=== PATIENT | female | born 2005 | race Caucasian/White ===

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

== ENCOUNTER → 2023-02-17 | Outpatient (CLI) | payer BC, SELFPAY ==
[2023-02-17 15:35] LABS: Absolute Neutrophil Count 3.5 X10^3/uL (2.0-7.7); Basophil# 0.04 X10^3/uL; Basophil% 0.7 % (0-1); Eosinophil# 0.15 X10^3/uL; Eosinophils% 2.5 % (0-5); Hematocrit 46.5 % (37-47); Hemoglobin 15.2 g/dL (12.0-15.0); Lymphocyte % 32.9 % (19-41); Mean Corp Hgb Conc 32.7 g/dL (32-36); Mean Corpuscular Hgb 29.5 pg (27.0-32.0); Mean Corpuscular Volume 90.1 fL (81-99); Mean Platelet Vol. 12.2 fl (6.2-12.0); Monocyte# 0.41 X10^3/uL; Monocyte% 6.7 % (0-10); NRBC Flagged by Analyzer 0 % (0-5); Neutrophil # 3.46 X10^3/uL (2.7-7.7); Neutrophil % 56.9 % (47-70); Platelet Count 178 K/mm3 (150-450); RBC Distribution Width CV 12.6 % (11.6-14.6); RBC Distribution Width SD 42.2 fl (35.1-43.9); Red Blood Count 5.16 M/mm3 (4.2-5.4); White Blood Count 6.1 K/mm3 (4.4-11.0)
[2023-02-17 16:07] LABS: Hemoglobin A1c 5.2 % (3.8-5.6)
[2023-02-17 16:18] LABS: ALB/GLOB Ratio 1.2 RATIO (0.9-2.4); AST(SGOT) 9 U/L (15-37); Alanine Aminotransfer ALT/SGPT 25 U/L (13-56); Albumin, Serum 4.3 g/dL (3.2-5.0); Alkaline Phosphatase 46 U/L (45-117); Anion Gap 6 (5-15); BUN 18 mg/dL (7-18); BUN/Creat Ratio 16.7 RATIO (10-20); Calcium,Total 9.6 mg/dL (8.5-10.1); Chloride 105 mmol/L (98-107); Creatinine, Serum 1.08 mg/dL (0.55-1.02); EST Glomerular Filtration Rate 69 mL/min (>60); Est Glom Filt Rate - Afr Amer 83 mL/min (>60); Free T3 2.6 pg/mL (2.18-3.98); Globulin 3.5 g/dL (2.2-4.2); Glucose 87 mg/dL (74-106); Potassium 3.7 mmol/L (3.5-5.1); Protein, Total 7.8 g/dL (6.4-8.2); Sodium Level 140 mmol/L (136-145); T4 Free Direct 1.06 ng/dL (0.76-1.46); T4 Total, Thyroxin 9.5 ug/dL (4.8-13.9); Thyroid Stim Hormone (TSH) 0.78 uIU/mL (0.358-3.74)
[2023-02-17 17:24] LABS: Insulin 30.4 mU/L (2.6-37.6); T3 Total - Triiodothyronine 0.92 ng/mL (0.6-1.81); Vitamin B12 391 pg/mL (211-911); Vitamin D,25 Hydroxy 30.7 ng/mL
[2023-02-22 12:07] LABS: T3 Reverse 17.1 ng/dL (9.2-24.1); Thyroglobulin Antibody 7.3 IU/mL (0.0-0.9); Thyroid Peroxidase AB 250 IU/mL (0-26)
== END | disposition home or self-care (01) ==
PROVIDERS: PCP Pediatrics
DX: R53.82 Chronic fatigue, unspecified (principal); K58.0 Irritable bowel syndrome with diarrhea; E07.9 Disorder of thyroid, unspecified; E88.81 Metabolic syndrome and other insulin resistance; F41.8 Other specified anxiety disorders
CPT/HCPCS: 36415; 80053; 82306; 82607; 82746; 83036; 83525; 84436; 84439; 84443; 84480; 84481; 84482; 85025; 86376; 86800

== ENCOUNTER → 2023-03-04 | Outpatient (CLI) | payer BC, SELFPAY ==
[2023-03-04 14:03] LABS: Bacteria 0 SEEN /hpf (None Seen); Mucous, Urine 0 SEEN /hpf (<or=2+); Red Blood Cells-Urine 0 SEEN /hpf (0-5)
[2023-03-04 15:11] LABS: Glucose, Dipstick Normal (Normal); Ketone-Dipstick Negative (Negative); Leukocyte Esterase-Dipstick Negative /ul (Negative); Nitrite-Dipstick Negative (Negative); Occult Blood-Urine 150 /ul (Negative); Protein-Dipstick Negative (Negative); Specific Gravity, Urine 1.015 (1.002-1.030); Urine Bilirubin Dipstick Negative (Negative); Urine Urobilinogen Normal (Normal)
[2023-03-04 15:16] LABS: Color, Urine Yellow (Yellow)
[2023-03-04 15:30] LABS: Urine Clarity Clear (Clear)
[2023-03-04 15:34] LABS: Squamous Epithelial Cells - UA 0-5 SEEN /hpf (5-10); White Blood Cells 0-5 SEEN /hpf (0-5)
== END | disposition home or self-care (01) ==
PROVIDERS: PCP Pediatrics
DX: R94.4 Abnormal results of kidney function studies (principal)
CPT/HCPCS: 81001

== ENCOUNTER → 2023-06-09 | Outpatient (CLI) | payer BC, SELFPAY ==
--- NOTE | 2023-06-09 14:33 | US_ITS ---
STUDY: THYROID ULTRASOUND REASON FOR EXAM: Female, 18 years old. Known nodule TECHNIQUE: Ultrasound evaluation of the thyroid was performed with real-time and static joshi-scale imaging. COMPARISON: 06/14/2021 FINDINGS: RIGHT LOBE: The right lobe of the thyroid gland measures 5.4 x 2.1 x 1.6 cm. There is a heterogeneous echotexture. There are no demonstrated solid, cystic or complex lesions. LEFT LOBE: The left lobe of the thyroid gland measures 5.5 x 2.0 x 1.6 cm. There is a heterogeneous echotexture. There is a stable lower pole cyst measuring 1.0 cm. This nodule is cystic or nearly completely cystic. TI-RADS points: 0. TI-RADS category: TR1. This nodule is benign and no FNA or follow-up is necessary. ISTHMUS: The isthmus measures 0.5 cm. Well-defined hypoechoic 1.1 cm isthmus nodule. This nodule is solid or almost completely solid, hypoechoic, [id number], smoothly marginated and contains no echogenic foci. TI-RADS points: 4. TI-RADS category: TR4. This nodule is moderately suspicious. Recommend follow-up thyroid ultrasounds at 1, 2, 3 and 5 years. The regional lymph nodes are normal. All measure less than 1 cm in short axis dimension US/Thyroid IMPRESSION: Borderline enlarged heterogeneous thyroid gland with a simple cyst in the left lobe which needs no specific follow-up and a new 1.1 cm hypoechoic isthmus nodule. Follow-up and categorization as described above Electronically Signed: Silvino Moffett MD at 20:09 EST ,
== END | disposition home or self-care (01) ==
LOC: US 14:32
PROVIDERS: PCP Pediatrics; Referring Provider Internal Medicine Endocrinology, Diabetes & Metabolism; Visit Provider Internal Medicine Endocrinology, Diabetes & Metabolism
DX: E04.9 Nontoxic goiter, unspecified (principal)
CPT/HCPCS: 76536

== ENCOUNTER → 2023-08-24 | Outpatient (CLI) | payer BC, SELFPAY ==
[2023-08-24 17:42] LABS: Absolute Lymphocyte Count 1.35 X10^3/uL (0.83-4.51); Absolute Neutrophil Count 3.9 X10^3/uL (2.0-7.7); Basophil# 0.03 X10^3/uL; Basophil% 0.5 % (0-1); Eosinophil# 0.15 X10^3/uL; Eosinophils% 2.6 % (0-5); Hematocrit 42.5 % (37-47); Hemoglobin 13.8 g/dL (12.0-15.0); Lymphocyte # 1.35 X10^3/ul (0.83-4.51); Lymphocyte % 23.3 % (19-41); Mean Corp Hgb Conc 32.5 g/dL (32-36); Mean Corpuscular Hgb 29.4 pg (27.0-32.0); Mean Corpuscular Volume 90.4 fL (81-99); Monocyte# 0.38 X10^3/uL; Monocyte% 6.6 % (0-10); NRBC Flagged by Analyzer 0 % (0-5); Neutrophil # 3.88 X10^3/uL (2.7-7.7); Neutrophil % 66.8 % (47-70); Platelet Count 172 K/mm3 (150-450); RBC Distribution Width CV 13.3 % (11.6-14.6); RBC Distribution Width SD 44.9 fl (35.1-43.9); White Blood Count 5.8 K/mm3 (4.4-11.0)
[2023-08-24 17:55] LABS: Hemoglobin A1c 5.1 % (3.8-5.6)
[2023-08-24 17:56] LABS: Insulin 16.3 mU/L (2.6-37.6); T3 Total - Triiodothyronine 0.85 ng/mL (0.6-1.81); Vitamin B12 422 pg/mL (211-911); Vitamin D,25 Hydroxy 33.3 ng/mL
[2023-08-24 18:09] LABS: ALB/GLOB Ratio 1.3 RATIO (0.9-2.4); AST(SGOT) 16 U/L (15-37); Alanine Aminotransfer ALT/SGPT 28 U/L (13-56); Albumin, Serum 4.2 g/dL (3.2-5.0); Alkaline Phosphatase 44 U/L (45-117); Anion Gap 7 (5-15); BUN 17 mg/dL (7-18); Calcium,Total 8.9 mg/dL (8.5-10.1); Chloride 106 mmol/L (98-107); Creatinine, Serum 1.13 mg/dL (0.55-1.02); EST Glomerular Filtration Rate 65 mL/min (>60); Est Glom Filt Rate - Afr Amer 79 mL/min (>60); Globulin 3.3 g/dL (2.2-4.2); Glucose 64 mg/dL (74-106); Potassium 3.6 mmol/L (3.5-5.1); Protein, Total 7.5 g/dL (6.4-8.2); Sodium Level 139 mmol/L (136-145); T4 Free Direct 0.92 ng/dL (0.76-1.46); T4 Total, Thyroxin 7.7 ug/dL (4.8-13.9); Thyroid Stim Hormone (TSH) 0.62 uIU/mL (0.358-3.74)
[2023-08-26 10:09] LABS: Anti-Nuclear Antibody Test Negative (.)
[2023-09-07 04:07] LABS: Thyroglobulin Antibody 1.5 IU/mL (0.0-0.9); Thyroid Peroxidase AB 152 IU/mL (0-34)
== END | disposition home or self-care (01) ==
PROVIDERS: PCP Pediatrics
DX: E56.9 Vitamin deficiency, unspecified (principal); K90.9 Intestinal malabsorption, unspecified; F41.8 Other specified anxiety disorders; R53.82 Chronic fatigue, unspecified; E07.9 Disorder of thyroid, unspecified
CPT/HCPCS: 36415; 80053; 82306; 82607; 82746; 83036; 83525; 84432; 84436; 84439; 84443; 84480; 84481; 85025; 86038; 86376; 86800

== ENCOUNTER → 2024-01-15 | Outpatient (CLI) | payer BC, SELFPAY ==
[2024-01-15 15:22] LABS: Absolute Lymphocyte Count 1.35 X10^3/uL (0.83-4.51); Absolute Neutrophil Count 4.6 X10^3/uL (2.0-7.7); Basophil# 0.02 X10^3/uL; Basophil% 0.3 % (0-1); Hematocrit 45.3 % (37-47); Hemoglobin 14.6 g/dL (12.0-15.0); Lymphocyte # 1.35 X10^3/ul (0.83-4.51); Lymphocyte % 20.3 % (19-41); Mean Corp Hgb Conc 32.2 g/dL (32-36); Mean Corpuscular Volume 90.1 fL (81-99); Monocyte# 0.46 X10^3/uL; Monocyte% 6.9 % (0-10); NRBC Flagged by Analyzer 0 % (0-5); Neutrophil # 4.61 X10^3/uL (2.7-7.7); Neutrophil % 69.3 % (47-70); Platelet Count 186 K/mm3 (150-450); RBC Distribution Width CV 12.7 % (11.6-14.6); Red Blood Count 5.03 M/mm3 (4.2-5.4); White Blood Count 6.7 K/mm3 (4.4-11.0)
[2024-01-15 15:53] LABS: ALB/GLOB Ratio 1.2 RATIO (0.9-2.4); AST(SGOT) 14 U/L (15-37); Alanine Aminotransfer ALT/SGPT 23 U/L (13-56); Albumin, Serum 4.3 g/dL (3.2-5.0); Alkaline Phosphatase 49 U/L (45-117); Anion Gap 9 (5-15); BUN 22 mg/dL (7-18); BUN/Creat Ratio 19.8 RATIO (10-20); Calcium,Total 9.3 mg/dL (8.5-10.1); Chloride 104 mmol/L (98-107); Creatinine, Serum 1.11 mg/dL (0.55-1.02); EST Glomerular Filtration Rate 66 mL/min (>60); Est Glom Filt Rate - Afr Amer 80 mL/min (>60); Free T3 2.2 pg/mL (2.18-3.98); Globulin 3.7 g/dL (2.2-4.2); Glucose 61 mg/dL (74-106); Potassium 3.8 mmol/L (3.5-5.1); Sodium Level 139 mmol/L (136-145); T4 Free Direct 0.99 ng/dL (0.76-1.46); T4 Total, Thyroxin 8.9 ug/dL (4.8-13.9); Thyroid Stim Hormone (TSH) 0.709 uIU/mL (0.358-3.740)
[2024-01-15 19:58] LABS: T3 Total - Triiodothyronine 0.85 ng/mL (0.6-1.81); Vitamin B12 363 pg/mL (211-911); Vitamin D,25 Hydroxy 45.1 ng/mL
[2024-01-18 15:07] LABS: ANTINUCLEAR ANTIBODIES DIRECT Negative (Negative)
[2024-01-25 04:07] LABS: Anti-Thyroglobulin AB 1.4 IU/mL (0.0-0.9); Insulin Level 28.9 uIU/mL (2.6-24.9); Thyroglobulin RIA 22 ng/mL (.); Thyroid Peroxidase AB 197 IU/mL (0-34)
== END | disposition home or self-care (01) ==
LOC: MTLAB 11:37
PROVIDERS: PCP Pediatrics
DX: E07.9 Disorder of thyroid, unspecified (principal); R53.82 Chronic fatigue, unspecified; F41.8 Other specified anxiety disorders; K90.9 Intestinal malabsorption, unspecified; E56.9 Vitamin deficiency, unspecified
CPT/HCPCS: 36415; 80053; 82306; 82607; 82746; 83036; 83525; 84432; 84436; 84439; 84443; 84480; 84481; 85025; 86038; 86225; 86235; 86376; 86800

== ENCOUNTER 2024-02-13 20:04 | Emergency (ER) | payer BC, SELFPAY ==
[2024-02-13 20:06] VITALS: BP 118/84; PULSE 107; RESP 16; TEMP 36.7; O2SAT 98; BMI 21.8
[2024-02-13] MEDS: 0.9% Normal Saline (1000mL) 1,000 ML 999 ML IV (20:36)
[2024-02-13] MEDS: Ondansetron 4 MG/2 ML Vial IV (20:36)
--- NOTE | 2024-02-13 20:42 | RAD_ITS ---
INDICATION: COUGH EXAMINATION/TECHNIQUE: X-RAY - XR Chest 2 Views COMPARISON: None. FINDINGS: LINES/DEVICES: None. LUNGS: No consolidation, edema or effusion. No pneumothorax. MEDIASTINUM AND CARDIOVASCULAR STRUCTURES: Cardiac silhouette not enlarged. Central airways and mediastinal contour are unremarkable. BONES AND SOFT TISSUES: Unremarkable. RAD/Chest PA and Lateral IMPRESSION: No radiographic evidence of acute cardiopulmonary disease. Electronically Signed: Geri Roman MD at 21:02 EDT Reading Location ID and State: [id number] / Tel , Service support ,
[2024-02-13 20:47] LABS: Absolute Lymphocyte Count 1.38 X10^3/uL (0.83-4.51); Basophil# 0.03 X10^3/uL; Basophil% 0.4 % (0-1); Eosinophils% 2.8 % (0-5); Hematocrit 44.2 % (37-47); Hemoglobin 14.7 g/dL (12.0-15.0); Lymphocyte # 1.38 X10^3/ul (0.83-4.51); Lymphocyte % 19.5 % (19-41); Mean Corp Hgb Conc 33.3 g/dL (32-36); Mean Corpuscular Hgb 29.6 pg (27.0-32.0); Mean Corpuscular Volume 88.9 fL (81-99); Mean Platelet Vol. 11.4 fl (6.2-12.0); Monocyte# 0.51 X10^3/uL; Monocyte% 7.2 % (0-10); NRBC Flagged by Analyzer 0 % (0-5); Neutrophil # 4.95 X10^3/uL (2.7-7.7); Platelet Count 161 K/mm3 (150-450); RBC Distribution Width CV 12.5 % (11.6-14.6); RBC Distribution Width SD 40.9 fl (35.1-43.9); Red Blood Count 4.97 M/mm3 (4.2-5.4); White Blood Count 7.1 K/mm3 (4.4-11.0)
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
[2024-02-13 20:52] LABS: Carboxyhemoglobin Frac (CO) 1.4 % (0.0-1.5)
[2024-02-13 21:04] LABS: Bacteria 0 SEEN /hpf (None Seen); Mucous, Urine 0 SEEN /hpf (<or=2+); Red Blood Cells-Urine 0 SEEN /hpf (0-5); Squamous Epithelial Cells - UA 0 SEEN /hpf (5-10); White Blood Cells 0 SEEN /hpf (0-5)
[2024-02-13 21:05] LABS: Anion Gap 7 (5-15); BUN 15 mg/dL (7-18); BUN/Creat Ratio 12.6 RATIO (10-20); Calcium,Total 9.7 mg/dL (8.5-10.1); Chloride 107 mmol/L (98-107); Creatinine, Serum 1.19 mg/dL (0.55-1.02); EST Glomerular Filtration Rate 61 mL/min (>60); Est Glom Filt Rate - Afr Amer 74 mL/min (>60); Estimated Creatinine Clearance 84.29 ml/min; Glucose 120 mg/dL (74-106); Potassium 3.7 mmol/L (3.5-5.1); Sodium Level 140 mmol/L (136-145)
[2024-02-13 21:12] LABS: Color, Urine Straw (Yellow); Glucose, Dipstick Normal (Normal); Ketone-Dipstick Negative (Negative); Leukocyte Esterase-Dipstick Negative /ul (Negative); Nitrite-Dipstick Negative (Negative); Occult Blood-Urine Negative /ul (Negative); Protein-Dipstick Negative (Negative); Urine Bilirubin Dipstick Negative (Negative); Urine Clarity Clear (Clear); Urine Urobilinogen Normal (Normal); Urine pH 6.5 (5.0 - 8.0)
[2024-02-13 21:25] LABS: Internal QC Validated? YES +Cl - CLEAR BKGD; Pregnancy, Urine Negative Negative
[2024-02-13 21:26] LABS: Record Kit Lot#,Urine Preg 772476
[2024-02-13 21:43] LABS: Carboxyhemoglobin Order ORDER TUBE
[2024-02-13 22:05] VITALS: BP 98/61; PULSE 79; RESP 16; O2SAT 99
[2024-02-13 22:24] VITALS: BP 98/61; PULSE 79; RESP 16; TEMP 37.2; O2SAT 99
== END 2024-02-13 22:27 | disposition home or self-care (01) ==
PROVIDERS: Nurse Practitioner; Emergency Provider Emergency Medicine; Visit Provider Emergency Medicine
DX: T59.891A Toxic effect of other specified gases, fumes and vapors, accidental (unintentional), initial encounter (principal); E06.3 Autoimmune thyroiditis; R42 Dizziness and giddiness; R51.9 Headache, unspecified
CPT/HCPCS: 71046; 80048; 81001; 81025; 82375; 85025; 93005; 96361; 96374; 99283; J7030; A4216; J2405